=== PATIENT | male | born 1965 | race Caucasian/White ===

== ENCOUNTER 2016-10-03 21:34 | Emergency (ER) | payer OTHER ==
[2016-10-03] MEDS ORDERED: VITAMIN B-1 100 MG, FOLVITE 1 MG, INFUVITE 10 ML in NACL 0.9% 1000 ML 1,000 ML IV ONE (22:07)
--- NOTE | 2016-10-03 22:10 | Emergency Department Report ---
HPI - General Time Seen by Provider: 10/03/16 22:06 - HPI HPI: This is a 50-year-old male presents the emergency department by EMS from a green party with the patient was found unresponsive outside. There was about 60 people at this green party and allegedly most of them new this patient. There was a large amount of alcohol consumption at the green party and suspicion the patient is acutely intoxicated by alcohol. The patient's son is bedside and says that the patient has a history of hypertension and some condition that causes skin thickening and tension in the hands and he takes medication for both. He has a primary care doctor but they cannot remove her his name at this time. The son says that the patient does not have any illicit drug use history. The patient is awake but does appear either intoxicated or confused, and says he is unsure about his alcohol consumption. The patient also presents with some bruising to the chest but he underwent a cultural ritual today called "coining" where coins are rolled up and down the chest and it is known to leave bruising and this is done voluntarily. ED Past Medical Hx - Medications Home Medications: Home Medications Medication Instructions Recorded Confirmed Last Taken Type No Known Home Medications [No 10/03/16 10/03/16 Unknown History Reported Home Medications] ED Review of Systems ROS: Stated complaint: UNRESPONSIVE/POSS ETOH Other details as noted in HPI Comment: Unobtainable due to pts medical conditions Physical Exam - Physical Exam Physical Exam: GENERAL: The patient is well-developed well-nourished. Patient appears intoxicated and smells of alcohol. HEENT: Normocephalic. Atraumatic. Extraocular motions are intact. Patient has moist mucous membranes. Pupils equal reactive to light bilaterally. NECK: Supple. Trachea is midline. CHEST/LUNGS: Clear to auscultation. There is no respiratory distress noted. HEART/CARDIOVASCULAR: Regular. There is no tachycardia. There is no gallop rub or murmur. ABDOMEN: Abdomen is soft, nontender. Patient has normal bowel sounds. There is no abdominal distention. SKIN: Skin is warm and dry. The patient has some lines of ecchymosis on the chest consistent with his admission to "coining." NEURO: The patient is awake, alert, and oriented but does appear intoxicated. The patient is cooperative. The patient has no focal neurologic deficits. The patient has normal speech. MUSCULOSKELETAL: There is no tenderness or deformity. There is no limitation range of motion. There is no evidence of acute injury. ED Medical Decision Making - Lab Data Result diagrams: 10/03/16 22:18 10/03/16 22:18 - EKG Data -: EKG Interpreted by Me EKG shows normal: sinus rhythm, axis, intervals, QRS complexes, ST-T waves Rate: normal - EKG Data When compared to previous EKG there are: previous EKG unavailable Interpretation: normal EKG - Medical Decision Making 50-year-old male presents by EMS from a green party where he was noted to be drinking and was found unresponsive at some point. He is awake and alert once he is in the emergency department but does appear intoxicated and smells of alcohol. Patient's labs are mostly unremarkable except for a blood alcohol level of 0.24 , 3 times the legal limit. Urine drug screen is negative. Patient was given a banana bag and some IV fluid resuscitation. The patient was reevaluated multiple times for multiple hours and has remained stable. If he is sleeping he is easily arousable and remains alert. By this point the patient appears much less intoxicated. His family is bedside and says that they are willing to take responsibility for him, tried him home, and monitor him. The patient does have the mechanism of heavy alcohol use his evening and since he has remained awake and alert despite his intoxication, I did not feel that CT imaging the head was necessary at this time. Vital signs stable throughout his ED course. The patient has been in the emergency department for 4.5 hours. His blood alcohol level would most likely be somewhere around 0.14 to .12. Patient will be discharged home to follow-up with his primary care doctor but has been encouraged to return to the emergency department with any acute distress. Patient was seen ambulatory in the emergency department and appears stable while doing so. - Differential Diagnosis alcohol abuse/intoxication, substance abuse, TIA, hypoglycemia Critical Care Time: No Critical care attestation.: If time is entered above; I have spent that time in minutes in the direct care of this critically ill patient, excluding procedure time. ED Disposition Clinical Impression: Alcohol abuse Alcohol intoxication Qualifiers: Complication of substance-induced condition: uncomplicated Qualified Code(s): F10.120 - Alcohol abuse with intoxication, uncomplicated Disposition: DISCHARGED TO HOME OR SELFCARE Is pt being admited?: No Condition: Stable Instructions: Abuse of Alcohol (ED), Alcohol Intoxication (ED) Additional Instructions: Please follow-up with your primary care doctor in the next few days. Return to the emergency department with any worsening of your symptoms or any acute distress. Referrals: PRIMARY CARE, [Primary Care Provider] - 3-5 Days Time of Disposition: 02:05
[2016-10-03 22:21] LABS: Urine Drugs of Abuse Note Disclamer
[2016-10-03 22:51] LABS: Basophils % (Auto) 0.3 % (0.0-1.8); Eosinophils % (Auto) 1.1 % (0.0-4.3); Hematocrit 41.9 % (35.5-45.6); Hemoglobin 13.7 gm/dl (11.8-15.2); Mean Corpuscular HGB Conc 33 % (32-34); Mean Corpuscular Hemoglobin 31 pg (28-32); Mean Corpuscular Volume 93 fl (84-94); Platelet Count 299 K/mm3 (140-440); Red Blood Count 4.49 M/mm3 (3.65-5.03); White Blood Count 8.7 K/mm3 (4.5-11.0)
[2016-10-03 22:57] LABS: Bilirubin,Urine NEG (Negative); Blood,Urine NEG (Negative); Ketones,Urine NEG (Negative); Leukocyte Esterase,Urine NEG (Negative); Nitrite,Urine NEG (Negative); Protein,Urine <15 mg/dL mg/dL (Negative); Urobilinogen,Urine < 2.0 mg/dL (<2.0); WBC,Urine < 1.0 /HPF (0.0-6.0)
[2016-10-03 23:17] LABS: Alanine Aminotransferase 19 units/L (7-56); Albumin 3.8 g/dL (3.9-5); Albumin/Globulin Ratio 1.2 %; Alkaline Phosphatase 84 units/L (35-129); Anion Gap 22 mmol/L; Bilirubin,Total 0.5 mg/dL (0.1-1.2); Blood Urea Nitrogen 12 mg/dL (9-20); Calcium 8.1 mg/dL (8.4-10.2); Carbon Dioxide 22 mmol/L (22-30); Chloride 99.9 mmol/L (98-107); Glucose 166 mg/dL (75-100); Potassium 3.7 mmol/L (3.6-5.0); Sodium 140 mmol/L (137-145); Total Protein 7.1 g/dL (6.3-8.2)
[2016-10-03 23:22] LABS: Creatine Kinase 107 units/L (55-170)
[2016-10-04 01:55] VITALS: BP 101/65
== END 2016-10-04 03:00 | disposition home or self-care (01) ==
LOC: ED 21:34
DX: F10.120 Alcohol abuse with intoxication, uncomplicated (principal)
CPT/HCPCS: 36415; 80053; 80307; 81001; 82550; 84443; 84484; 85025; 93005; 93010; 96365; 99284; G0480; J3411; J7030; 80320

== ENCOUNTER 2017-01-16 12:55 | Inpatient (IN) | payer OTHER ==
[2017-01-16 14:47] LABS: Basophils % (Auto) 0.2 % (0.0-1.8); Eosinophils % (Auto) 0.3 % (0.0-4.3); Hematocrit 46.9 % (35.5-45.6); Hemoglobin 15.5 gm/dl (11.8-15.2); Mean Corpuscular HGB Conc 33 % (32-34); Mean Corpuscular Hemoglobin 32 pg (28-32); Mean Corpuscular Volume 97 fl (84-94); Platelet Count 344 K/mm3 (140-440); Red Blood Count 4.84 M/mm3 (3.65-5.03); Red Cell Distribution Width 14.8 % (13.2-15.2); White Blood Count 12.4 K/mm3 (4.5-11.0)
[2017-01-16 14:56] LABS: INR 0.96 (0.87-1.13)
[2017-01-16 15:10] LABS: Creatine Kinase MB 1.2 ng/mL (0.0-4.0)
[2017-01-16 15:14] LABS: Anion Gap 23 mmol/L; BUN/Creatinine Ratio 14.44; Blood Urea Nitrogen 13 mg/dL (9-20); Calcium 9.3 mg/dL (8.4-10.2); Carbon Dioxide 23 mmol/L (22-30); Chloride 102.3 mmol/L (98-107); Creatine Kinase 68 units/L (55-170); Glucose 82 mg/dL (75-100); Lipase 16 units/L (13-60); Potassium 5.1 mmol/L (3.6-5.0); Sodium 143 mmol/L (137-145)
--- NOTE | 2017-01-16 15:45 | Emergency Department Report ---
ED Shortness of Breath HPI - General Chief Complaint: Adult Asthma Stated Complaint: MILLY Time Seen by Provider: 01/16/17 13:30 Source: patient, EMS Mode of arrival: Stretcher Limitations: No Limitations - History of Present Illness Initial Comments: 51-year-old male with a past medical history of arthritis presents to the hospital with complaints of shortness of breath, weakness, and chest tightness. Patient was sitting outside on symptom onset. Came into the house and told his family members about his symptoms. He currently feels asymptomatic. Patient had one episode of vomiting so she did nausea. No diaphoresis. Patient denies a previous history of hypertension despite triage. however pt takes 6 medication but does not know the name. - Related Data Home Medications Medication Instructions Recorded Confirmed Last Taken No Known Home Medications [No 10/03/16 10/03/16 Unknown Reported Home Medications] Allergies Allergy/AdvReac Type Severity Reaction Status Date / Time No Known Allergies Allergy Verified 10/03/16 22:38 ED Review of Systems ROS: Stated complaint: MILLY Other details as noted in HPI Comment: All other systems reviewed and negative Other: Constitutional: No fevers chills or weight loss Eyes: No eye pain visual changes or discharge ENT: No ear pain or throat pain Neck: Denies pain Respiratory: Denies cough wheezing Cardiovascular: Denies palpitations, syncope GI: Denies abdominal pain, nausea, vomiting, diarrhea : Denies dysuria Musculoskeletal: Denies back pain Skin: skin robert secondary to coining Neurologic: Denies headache, numbness, weakness Psychiatric: Denies suicidal ideation, hallucinations ED Past Medical Hx - Past Medical History Previous Medical History?: Yes Hx Hypertension: Yes Hx Arthritis: Yes Additional medical history: son states some hardening condition of hands ( unknown) - Surgical History Past Surgical History?: No - Social History Smoking Status: Never Smoker - Medications Home Medications: Home Medications Medication Instructions Recorded Confirmed Last Taken Type No Known Home Medications [No 10/03/16 10/03/16 Unknown History Reported Home Medications] ED Physical Exam - General Limitations: No Limitations - Other Other exam information: General: No limitations, patient is alert in no acute distress Head exam: Atraumatic, normocephalic Eyes exam: Normal appearance, pupils equal reactive to light, extraocular movements intact ENT: Moist mucous membrane, normal oropharynx Neck exam: Normal inspection, full range of motion, no meningismus nontender Respiratory exam: Clear to auscultation bilateral, no wheezes, rales, crackles Cardiovascular: Normal rate and rhythm, normal heart sounds, chest wall nontender Abdomen: Soft, nondistended, and nontender, with normal bowel sounds, no rebound, or guarding Extremity: Full range of motion normal inspection no deformity, no calf tenderness or edema Back: Normal Inspection, full range of motion, no tenderness Neurologic: Alert, oriented x3, cranial nerves intact, no motor or sensory deficit Psychiatric: normal affect, normal mood Skin: Multiple skin robert secondary to coronary ED Course Vital Signs 01/16/17 13:03 Temperature 98.7 F Pulse Rate 103 H Blood Pressure 124/83 O2 Sat by Pulse 100 Oximetry - Reevaluation(s) Reevaluation #1: 01/16/17 16:05 Patient asymptomatic in the ED 01/16/17 16:11 Patient had increased heart rate with standing and a mild drop in blood pressure. It is also possible the patient's generalized weakness, tightness, shortness of breath can be related to orthostatic symptoms. 1 L normal saline ordered ED Medical Decision Making - Lab Data Result diagrams: 01/16/17 14:33 01/16/17 14:33 Lab Results 01/16/17 01/16/17 01/16/17 Range/Units 14:20 14:33 14:33 WBC 12.4 H (4.5-11.0) K/mm3 RBC 4.84 (3.65-5.03) M/mm3 Hgb 15.5 H (11.8-15.2) gm/dl Hct 46.9 H (35.5-45.6) % MCV 97 H (84-94) fl MCH 32 (28-32) pg MCHC 33 (32-34) % RDW 14.8 (13.2-15.2) % Plt Count 344 (140-440) K/mm3 Lymph % (Auto) 9.9 L (13.4-35.0) % [place] % (Auto) 10.2 H (0.0-7.3) % Eos % (Auto) 0.3 (0.0-4.3) % Baso % (Auto) 0.2 (0.0-1.8) % Lymph # 1.2 (1.2-5.4) K/mm3 [place] # 1.3 H (0.0-0.8) K/mm3 Eos # 0.0 (0.0-0.4) K/mm3 Baso # 0.0 (0.0-0.1) K/mm3 Seg Neutrophils % 79.4 H (40.0-70.0) % Seg Neutrophils # 9.8 H (1.8-7.7) K/mm3 PT 12.7 (12.2-14.9) Sec. INR 0.96 (0.87-1.13) Sodium (137-145) mmol/L Potassium (3.6-5.0) mmol/L Chloride (98-107) mmol/L Carbon Dioxide (22-30) mmol/L Anion Gap mmol/L BUN (9-20) mg/dL Creatinine (0.8-1.5) mg/dL Estimated GFR ml/min BUN/Creatinine Ratio % Glucose (75-100) mg/dL Calcium (8.4-10.2) mg/dL Magnesium (1.7-2.3) mg/dL Total Creatine Kinase (55-170) units/L CK-MB (CK-2) (0.0-4.0) ng/mL CK-MB (CK-2) Rel Index (0-4) Troponin T (0.00-0.029) ng/mL NT-Pro-B Natriuret Pep (0-900) pg/mL Lipase (13-60) units/L Plasma/Serum Alcohol 0.07 (0-0.07) gm% 01/16/17 01/16/17 Range/Units 14:33 14:33 WBC (4.5-11.0) K/mm3 RBC (3.65-5.03) M/mm3 Hgb (11.8-15.2) gm/dl Hct (35.5-45.6) % MCV (84-94) fl MCH (28-32) pg MCHC (32-34) % RDW (13.2-15.2) % Plt Count (140-440) K/mm3 Lymph % (Auto) (13.4-35.0) % [place] % (Auto) (0.0-7.3) % Eos % (Auto) (0.0-4.3) % Baso % (Auto) (0.0-1.8) % Lymph # (1.2-5.4) K/mm3 [place] # (0.0-0.8) K/mm3 Eos # (0.0-0.4) K/mm3 Baso # (0.0-0.1) K/mm3 Seg Neutrophils % (40.0-70.0) % Seg Neutrophils # (1.8-7.7) K/mm3 PT (12.2-14.9) Sec. INR (0.87-1.13) Sodium 143 (137-145) mmol/L Potassium 5.1 H (3.6-5.0) mmol/L Chloride 102.3 (98-107) mmol/L Carbon Dioxide 23 (22-30) mmol/L Anion Gap 23 mmol/L BUN 13 (9-20) mg/dL Creatinine 0.9 (0.8-1.5) mg/dL Estimated GFR > 60 ml/min BUN/Creatinine Ratio 14.44 % Glucose 82 (75-100) mg/dL Calcium 9.3 (8.4-10.2) mg/dL Magnesium 2.50 H (1.7-2.3) mg/dL Total Creatine Kinase 68 (55-170) units/L CK-MB (CK-2) 1.2 (0.0-4.0) ng/mL CK-MB (CK-2) Rel Index 1.7 (0-4) Troponin T < 0.010 (0.00-0.029) ng/mL NT-Pro-B Natriuret Pep 26.02 (0-900) pg/mL Lipase 16 (13-60) units/L Plasma/Serum Alcohol (0-0.07) gm% - EKG Data -: EKG Interpreted by Me (sinus 87 no stemi) - EKG Data When compared to previous EKG there are: no significant change - Radiology Data Radiology results: report reviewed (chest x-ray: No acute finding) - Medical Decision Making Patient will be admitted to the hospital for cardiac workup given reports of chest tightness and shortness of breath. It is unclear past medical history and patient is unable to communicate the 6 medications he is taking. Hospitalist informed - Differential Diagnosis MA, unstable angina, MA, costochondritis, atypical chest pain Critical Care Time: No Critical care attestation.: If time is entered above; I have spent that time in minutes in the direct care of this critically ill patient, excluding procedure time. ED Disposition Clinical Impression: Chest pain, SOB (shortness of breath) Disposition: DC-09 OP ADMIT IP TO THIS HOSP Is pt being admited?: Yes Does the pt Need Aspirin: Yes Condition: Stable Time of Disposition: 16:10 (Dr Stanley/hosp)
--- NOTE | 2017-01-16 15:54 | XRay Report ---
FINAL REPORT PROCEDURE: XR CHEST ROUTINE 2V PA and lateral chest x-ray TECHNIQUE: PA and lateral chest radiographs were obtained. CPT 65314 HISTORY: cp, sob COMPARISON: No prior studies are available for comparison. FINDINGS: Heart: Normal. Mediastinum/Vessels: Normal. Lungs/Pleural space: Normal. Bony thorax: No acute osseous abnormality. Other: IMPRESSION: Negative exam.
[2017-01-16] MEDS ORDERED: ASPIRIN PO ONE (16:10)
[2017-01-16] MEDS ORDERED: NACL 0.9% 1000 ML 1,000 ML IV ONE (16:11)
--- NOTE | 2017-01-16 18:00 | History and Physical Report ---
History of Present Illness Date of examination: 01/16/17 Chief complaint: Shortness of breath History of present illness: 51-year-old male with past medical history significant for hypertension , scleroderma presented to the emergency department complaining of shortness of breath and chest tightness that started this morning. Patient said shortness of breath started while he was sitting associated with some dizziness and chest tightness that resolved. Patient denied fever, cough, diaphoresis, palpitation. Patient said he was drinking alcohol last night. REVIEW OF SYSTEMS: GENERAL: no weight change, no fatigue, no fever HEAD: no head ache EYES: no blurry vision, no acute visual loss EARS: no hearing loss, no discharge, no earache NOSE: no stuffiness, no sneezing, no discharge MOUTH, THROAT AND NECK: no bleeding gums, no sore throat, no swollen neck CARDIAC: no palpitations, no dyspnea on exertion, no orthopnea, no PND, no edema , no chest pain, + chest tightness RESPIRATORY: + shortness of breath, no wheeze, no cough, no sputum, no hemoptysis, no asthma GI: no decreased appetite, no nausea, no vomiting, no dysphagia, no diarrhea, no constipation, no abdominal pain URINARY: no change in frequency, no urgency, no polyuria, no hematuria, no incontinence MUSCULOSKELETAL: no muscle weakness, no pain, no joint stiffness NEUROLOGIC: no loss of sensation/numbness, no tingling, no tremors, no weakness/ paralysis HEMATOLOGIC: no anemia, no easy bruising SKIN: no rashes ENDOCRINE: no heat/cold intolerance, no polyuria, no polydipsia, no thyroid problems, no diabetes PSYCHIATRIC: no anxiety, no depression, no suicidal ideations Past History Past Medical History: hypertension, other Past Surgical History: No surgical history (scleroderma) Social history: smoking (2-3 cigarettes a day), alcohol abuse (1-2 BEERS daily) , full code. denies: prescription drug abuse, IV drug use Family history: no significant family history Medications and Allergies Allergies Allergy/AdvReac Type Severity Reaction Status Date / Time No Known Allergies Allergy Verified 10/03/16 22:38 Home Medications Medication Instructions Recorded Confirmed Last Taken Type No Known Home Medications [No 10/03/16 10/03/16 Unknown History Reported Home Medications] Exam - Physical Exam Narrative exam: Not in cardiopulmonary distress. The patient appeared well nourished and normally developed. Vital signs as documented. Head exam is unremarkable. No scleral icterus . Neck is without jugular venous distension, thyromegaly, or carotid bruits. Lungs are clear to auscultation. Cardiac exam reveals regular rate and Rhythm. First and second heart sounds normal. No murmurs, rubs or gallops. Abdominal exam reveals normal bowel sounds, no masses, no organomegaly and no aortic enlargement. Extremities are nonedematous and both femoral and pedal pulses are normal. Skin there are diffuse reddish discoloration on the chest and on the arm. PHOTOGRAPHERS' MODEL: Alert and oriented 3. No focal weakness. - Constitutional Vitals: Temp Pulse Resp BP Pulse Ox 98.7 F 103 H 124/83 100 01/16/17 13:03 01/16/17 13:03 01/16/17 13:03 01/16/17 13:03 Results - Labs CBC & Chem 7: 01/16/17 14:33 01/16/17 14:33 Labs: Laboratory Last Values WBC 12.4 K/mm3 (4.5-11.0) H 01/16/17 14:33 RBC 4.84 M/mm3 (3.65-5.03) 01/16/17 14:33 Hgb 15.5 gm/dl (11.8-15.2) H 01/16/17 14:33 Hct 46.9 % (35.5-45.6) H 01/16/17 14:33 MCV 97 fl (84-94) H 01/16/17 14:33 MCH 32 pg (28-32) 01/16/17 14:33 MCHC 33 % (32-34) 01/16/17 14:33 RDW 14.8 % (13.2-15.2) 01/16/17 14:33 Plt Count 344 K/mm3 (140-440) 01/16/17 14:33 Lymph % (Auto) 9.9 % (13.4-35.0) L 01/16/17 14:33 [place] % (Auto) 10.2 % (0.0-7.3) H 01/16/17 14:33 Eos % (Auto) 0.3 % (0.0-4.3) 01/16/17 14:33 Baso % (Auto) 0.2 % (0.0-1.8) 01/16/17 14:33 Lymph # 1.2 K/mm3 (1.2-5.4) 01/16/17 14:33 [place] # 1.3 K/mm3 (0.0-0.8) H 01/16/17 14:33 Eos # 0.0 K/mm3 (0.0-0.4) 01/16/17 14:33 Baso # 0.0 K/mm3 (0.0-0.1) 01/16/17 14:33 Seg Neutrophils % 79.4 % (40.0-70.0) H 01/16/17 14:33 Seg Neutrophils # 9.8 K/mm3 (1.8-7.7) H 01/16/17 14:33 PT 12.7 Sec. (12.2-14.9) 01/16/17 14:33 INR 0.96 (0.87-1.13) 01/16/17 14:33 Sodium 143 mmol/L (137-145) 01/16/17 14:33 Potassium 5.1 mmol/L (3.6-5.0) H 01/16/17 14:33 Chloride 102.3 mmol/L (98-107) 01/16/17 14:33 Carbon Dioxide 23 mmol/L (22-30) 01/16/17 14:33 Anion Gap 23 mmol/L 01/16/17 14:33 BUN 13 mg/dL (9-20) 01/16/17 14:33 Creatinine 0.9 mg/dL (0.8-1.5) 01/16/17 14:33 Estimated GFR > 60 ml/min 01/16/17 14:33 BUN/Creatinine Ratio 14.44 % 01/16/17 14:33 Glucose 82 mg/dL (75-100) 01/16/17 14:33 Calcium 9.3 mg/dL (8.4-10.2) 01/16/17 14:33 Magnesium 2.50 mg/dL (1.7-2.3) H 01/16/17 14:33 Total Creatine Kinase 68 units/L (55-170) 01/16/17 14:33 CK-MB (CK-2) 1.2 ng/mL (0.0-4.0) 01/16/17 14:33 CK-MB (CK-2) Rel Index 1.7 (0-4) 01/16/17 14:33 Troponin T < 0.010 ng/mL (0.00-0.029) 01/16/17 14:33 NT-Pro-B Natriuret Pep 26.02 pg/mL (0-900) 01/16/17 14:33 Lipase 16 units/L (13-60) 01/16/17 14:33 Plasma/Serum Alcohol 0.07 gm% (0-0.07) 01/16/17 14:20 Assessment and Plan Assessment and plan: Shortness of breath Chest tightness Scleroderma Hypertension Active tobacco use leukocytosis - First troponin is negative EKG normal sinus rhythm, we'll do 2 more sets of cardiac enzymes - Chest x-rays normal - We'll stress test tomorrow - Counseled about cessation of tobacco - leukocytosis is due to prednisone - We will resume appropriate home medications DVT prophylaxis - Lovenox Disposition - Admit to telemetry floor Advance Directives: Yes VTE prophylaxis?: Chemical Plan of care discussed with patient/family: Yes
[2017-01-16] MEDS ORDERED: SODIUM CHLORIDE FLUSH SYRINGE 10 ML IV PRN (18:02)
[2017-01-16 18:48] LABS: Basophils % (Auto) 0.4 % (0.0-1.8); Eosinophils % (Auto) 0.6 % (0.0-4.3); Hematocrit 39.8 % (35.5-45.6); Hemoglobin 13.6 gm/dl (11.8-15.2); Mean Corpuscular HGB Conc 34 % (32-34); Mean Corpuscular Hemoglobin 32 pg (28-32); Mean Corpuscular Volume 95 fl (84-94); Platelet Count 290 K/mm3 (140-440); Red Blood Count 4.21 M/mm3 (3.65-5.03); Red Cell Distribution Width 14.7 % (13.2-15.2); White Blood Count 7.6 K/mm3 (4.5-11.0)
[2017-01-16] MEDS ORDERED: LOVENOX SUB-Q SCH (19:00)
[2017-01-16 19:03] LABS: Anion Gap 20 mmol/L; BUN/Creatinine Ratio 13.75; Blood Urea Nitrogen 11 mg/dL (9-20); Calcium 8.2 mg/dL (8.4-10.2); Carbon Dioxide 22 mmol/L (22-30); Chloride 105.4 mmol/L (98-107); Cholesterol 153 mg/dL (50-199); Glucose 84 mg/dL (75-100); HDL Cholesterol 38 mg/dL (40-59); LDL Cholesterol,Direct 68 mg/dL (50-130); Potassium 4.4 mmol/L (3.6-5.0); Sodium 143 mmol/L (137-145); Triglycerides 239 mg/dL (2-149)
[2017-01-16 19:16] LABS: INR 0.94 (0.87-1.13)
[2017-01-17 05:36] LABS: Basophils % (Auto) 0.3 % (0.0-1.8); Eosinophils % (Auto) 2.2 % (0.0-4.3); Hematocrit 40.5 % (35.5-45.6); Hemoglobin 13.4 gm/dl (11.8-15.2); Mean Corpuscular HGB Conc 33 % (32-34); Mean Corpuscular Hemoglobin 32 pg (28-32); Mean Corpuscular Volume 96 fl (84-94); Platelet Count 286 K/mm3 (140-440); Red Cell Distribution Width 14.5 % (13.2-15.2); White Blood Count 5.6 K/mm3 (4.5-11.0)
[2017-01-17 05:58] LABS: Anion Gap 19 mmol/L; Blood Urea Nitrogen 14 mg/dL (9-20); Calcium 8.6 mg/dL (8.4-10.2); Carbon Dioxide 23 mmol/L (22-30); Chloride 102.2 mmol/L (98-107); Glucose 89 mg/dL (75-100); Potassium 3.6 mmol/L (3.6-5.0); Sodium 141 mmol/L (137-145)
[2017-01-17] MEDS ORDERED: PROCARDIA XL PO SCH (10:00)
[2017-01-17] MEDS ORDERED: predniSONE PO SCH (10:00)
[2017-01-17] MEDS ORDERED: PROTONIX PO SCH (10:00)
[2017-01-17] MEDS ORDERED: BABY ASPIRIN PO SCH (10:00)
[2017-01-17] MEDS ORDERED: FOLVITE PO SCH (10:00)
[2017-01-17] MEDS ORDERED: LEXISCAN IV ONE ×2 (10:18→10:21)
--- NOTE | 2017-01-17 10:48 | Admit Criteria Form ---
Admission Criteria Documentation: CARDIOLOGY GRG Clinical Indications for Admission to Inpatient Care ( Place 'X' for any and all applicable criteria): Hospital admission is needed for appropriate care of the patient because of ANY ONE of the following (1): [ ] I. Hemodynamic instability as indicated by ALL of the following (1)(2)(3) (4)(5) [ ]a) Vital signs or other findings not as expected for chronic patient condition or baseline [ ]b) Instability indicated by ANY ONE of the following: [ ]i) Hypotension [ ]ii) Symptomatic Tachycardia unresponsive to treatment ( e.g., analgesia, fluids, sedation as indicated) [ ]iii) Inadequate perfusion indicated by ANY ONE of the following: [ ] 1) Lactic acidosis (> 2 mmol/L) [ ] 2) New abnormal capillary refill (> 3 seconds) [ ] 3) Reduced urine output [ ] 4) New altered mental status [ ]iv) Orthostatic vital sign changes unresponsive to treatment (e.g., fluids) [ ]v) IV inotropic or vasopressor medication required to maintain adequate blood pressure or perfusion [ ] II. Severe heart failure as indicated by ANY ONE of the following(17)(18) [ ]a) Respiratory distress [ ]b) Hypotension [ ]c) Anasarca (refractory to outpatient therapy) [ ]d) Cardiac arrhythmias of immediate concern [ ]e) Myocardial ischemia [ ] III. Cardiac arrhythmias or findings of immediate concern indicated by ANY ONE of the following (19)(20): [ ] a) Heart rhythms that are inherently dangerous or unstable indicated by ANY ONE of the following (21)(22)(23): [ ] i) Resuscitated ventricular fibrillation or cardiac arrest [ ] ii) Ventricular escape rhythm [ ] iii) Sustained ventricular tachycardia (30 seconds or more of ventricular rhythm at greater than 100 beats per minute) [ ] iv) Nonsustained ventricular tachycardia and ANY ONE of the following: [ ] 1) Suspected cardiac ischemia as cause or consequence of ventricular tachycardia [ ] 2) In setting of acute myocarditis [ ] b) Unstable cardiac conduction defects indicated by ANY ONE of the following(23)(24)(25) [ ] i) Type II second-degree atrioventricular block [ ]ii) Third-degree atrioventricular block [ ]iii) New-onset left bundle branch block with suspected myocardial ischemia [ ]c) Any heart rhythm and ANY ONE of the following (21)(22)(26)(27) (28) [ ] i) Continuous long-term ECG monitoring needed (e.g., initiation of drug requiring monitoring for more than 24 hours) [ ] ii) Patient has automatic implanted cardioverter defibrillator that is repeatedly firing, malfunctioning, or in need of immediate adjustment of settings beyond the scope of ambulatory or observation care [ ]d) Heart rhythms of concern due to ANY ONE of the following: [ ] i) Hypotension [ ] ii) Respiratory distress [ ] iii) Association with other significant symptoms (e.g., bradycardia with syncope or ongoing dizziness, supraventricular tachycardia with chest pain (14)(15)(17) [ ] IV. Monitoring for cardiac contusion beyond the scope of observation care needed [A](30)(31)(32) [ ] V. Surgical or device complication (e.g., valve replacement complication , pacemaker dysfunction) (35)(41)(44)(45)(46) [ ] . Inpatient palliative care needed. [B](49) Also use Inpatient Palliative Care Criteria [ ] VII. Nonbacterial thrombotic (marantic) endocarditis (36)(43)(47)(48) [X] VIII. Cardiology condition, symptom, or finding for which emergency and observation care has failed or are not considered appropriate. [ ] IX. Acute valvular disease requiring inpatient as indicated by ANY ONE of the following (41) [ ]a) Acute valvular regurgitation (42) [ ]b) Noninfectious valvulitis (43) [ ]c) Obstructive valve thrombosis [ ]d) Paravalvular leak [ ]e) Other significant valvular disorder remaining after emergency or observation level of care (as appropriate) [ ]X. Pericardial disease requiring inpatient treatment as indicated by ANY ONE of the following (33)(34)(35)(36)(37) [ ]a) Suspected tamponade (38)(39)(40) [ ]b) Hemopericardium [ ]c) Other significant pericardial disorder remaining after emergency or observation level of care (as appropriate) [ ] XI. Cardiac ischemia beyond scope of emergency and observation care. [ ] XII. Hypertension requiring inpatient treatment as indicated by ANY ONE of the following (6)(7)(8) [ ]a) SBP greater than 220 mm Hg or DBP greater than 120 mmHg despite treatment [ ]b) SBP greater than 140 mm Hg or DBP greater than 100 mm Hg with evidence of acute end organ damage as indicated by ANY ONE of the following [ ] i) Altered mental status [ ] ii) Acute renal failure as indicated by new onset of ANY ONE of the following (9)(10)(11)(12)(13) [ ]1) 3-fold rise in serum creatinine from baseline [ ]2) Serum creatinine greater than 4 mg/dL ( 354 micromoles/L) with acute rise greater than 0.5 mg/dL (44.2 micromoles/L) [ ]3) Reduction of more than 75% in estimated glomerular filtration rate from baseline [ ]4) Estimated glomerular filtration rate less than 35 mL/min/1.73m2 (0.59 mL/sec/1.73m2) in child up to 18 years of age [ ]5) Cessation of urine output indicated by ALL of the following [ ]A. Adequate volume status [ ]B. Inadequate urine output as indicated by ANY ONE of the following [ ]a. Urine output less than 0.3 mL/kg/hr for 24 hours [ ]b. Anuria (urine output less than 0.1 mL/kg/hr) for 12 hours [ ] iii) Aortic dissection [ ] iv) Myocardial Ischemia [ ] v) Left ventricular heart failure [ ]vi) Retinal Hemorrhage [ ]vii) Other significant finding [ ]c) Hypertension in child requiring inpatient treatment as indicated by ALL of the following(14)(15)(16) [ ] i) Outpatient treatment not effective, not available, or not appropriate [ ]ii) SBP or DBP greater than 95th percentile for age [ ]iii) Evidence of acute end organ damage as indicated by ANY ONE of the following [ ]1) Altered mental status [ ]2) Acute renal failure as indicated by new onset of ANY ONE of the following(9)(10)(11)(12)(13) [ ]A. 3-fold rise in serum creatinine from baseline [ ]B. Serum creatinine greater than 4 mg/dL (354 micromoles/L) with acute rise greater than 0.5 mg/dL (44.2 micromoles/L) [ ]C. Reduction of more than 75% in estimated glomerular filtration rate from baseline [ ]D. Estimated glomerular filtration rate less than 35 mL/min/1.73m2 (0.59 mL/sec/1.73m2) in child up to 18 years of age [ ]E. Cessation of urine output indicated by ALL of the following [ ]a. Adequate volume status [ ]b. Inadequate urine output as indicated by ANY ONE of the following [ ]i) Urine output less than 0.3 mL/kg/hr for 24 hours [ ]ii) Anuria ( urine output less than 0.1 mL/kg/hr) for 12 hours [ ]3) Severe headache [ ]4) Visual disturbance [ ]5) Retinal hemorrhage [ ]6) Other significant finding [ ]XIII. Complications of transplanted heart indicated by ANY ONE of the following(61): [ ]a) Acute graft rejection requiring inpatient management (eg, intravenous immunosuppression)(62)(63) [ ]b) Acute graft heart failure indicated by ANY ONE of the following(64): [ ]i) Hemodynamic instability [ ]ii) Cardiac arrhythmias of immediate concern [ ]iii) Pulmonary edema that is very severe (eg, mechanical ventilation needed, imminent or likely, need for 100% oxygen to keep oxygen saturation above 90%) [ ]iv) Pulmonary edema that is persistent as indicated by ALL of the following: [ ]1) New need for oxygen therapy to keep oxygen saturation above 90% (or increased FiO2 need from baseline) [ ]2) Has not improved sufficiently with emergency department or observation care IV diuretics or other heart failure treatments[E] [ ]v) Altered mental status that is severe or persistent [ ]vi) Increased creatinine (new on laboratory test) with reduction of more than 50% in estimated glomerular filtration rate from baseline [ ]vii) Progressively (ongoing) rising creatinine (known from past laboratory test) with reduction of more than 25% in estimated glomerular filtration rate from baseline [ ]viii) Acute renal failure [ ]ix) Acute peripheral ischemia (eg, examination shows pulseless, cool, mottled, or cyanotic extremity) [ ]x) Pulmonary artery catheter monitoring needed [ ]xi) Other sign or symptom of heart failure requiring inpatient treatment (ie, too severe or not responsive to outpatient and observation care treatment) [ ]c) Infection requiring inpatient management (eg, Hemodynamic instability, need for intravenous antimicrobial treatment)(66)(67)(68)(69)(70) [ ]d) Cardiac allograft vasculopathy requiring inpatient management ( eg evidence of cardiac ischemia)(71) [ ]e) Other complication of transplanted heart (eg, stroke, severe pulmonary hypertension, severe valvular dysfunction) requiring inpatient management(72) The original [facility] [employer] content created by [facility] has been revised. The portions of the content which have been revised are identified through the use of italic text or in bold, and [facility] has neither reviewed nor approved the modified material. All other unmodified content is copyright [facility] [employer]. Please see references footnoted in the original [facility] [employer] edition 2016 Admission Criteria Met: Yes
--- NOTE | 2017-01-17 12:34 | Discharge Summary ---
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 Patient said shortness of breath started while he was sitting associated with some dizziness and chest tightness that resolved. Patient denied fever, cough, diaphoresis, palpitation. Patient said he was drinking alcohol last night. The patient was re-stratified with a stress test which was negative his respiratory status didn' t improve. We did recommend continue on his medications as he is on prednisone and this was continued here. 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 He did not do straight any fever at this time. He is clinically stable for discharge Discharge diagnosis Acute on chronic respiratory failure Typical chest pain likely secondary to costochondritis Scleroderma Hypertension Active tobacco use Active leukocytosis Disposition: - TO HOME OR SELFCARE Time spent for discharge: 31 Core Measure Documentation - Palliative Care Palliative Care/ Comfort Measures: Not Applicable - Core Measures Any of the following diagnoses?: none - VTE Discharge Requirements Deep Vein Thrombosis/Pulmonary Embolism Present on Admission: No Exam - Physical Exam Narrative exam: VITAL SIGNS: Reviewed. GENERAL: The patient appeared well nourished and normally developed. Vital signs as documented. HEAD: No signs of head trauma. EYES: Pupils are equal. Extraocular motions intact. EARS: Hearing grossly intact. MOUTH: Oropharynx is normal. NECK: No adenopathy, no JVD. CHEST: Chest with clear breath sounds bilaterally. No wheezes, rales, or rhonchi. CARDIAC: Regular rate and rhythm. S1 and S2, without murmurs, gallops, or rubs. VASCULAR: No Edema. Peripheral pulses normal and equal in all extremities. ABDOMEN: Soft, without detectable tenderness. No sign of distention. No rebound or guarding, and no masses palpated. Bowel Sounds normal. MUSCULOSKELETAL: Good range of motion of all major joints. Extremities without clubbing, cyanosis or edema. NEUROLOGIC EXAM: Alert and oriented x 3. No focal sensory or strength deficits. Speech normal. Follows commands. PSYCHIATRIC: Mood normal. SKIN: No rash or lesions. - Constitutional Vitals: Temp Pulse Resp BP Pulse Ox 98.2 F 58 L 18 120/63 98 01/17/17 08:00 01/17/17 08:02 01/17/17 08:00 01/17/17 08:00 01/17/17 08:00 Plan Activity: advance as tolerated, fall precautions Diet: low fat Special Instructions: record daily weights, record daily BP diary Follow up with: PRIMARY CARE, [Primary Care Provider] - 3-5 Days Forms: Discharge Signature Page
--- NOTE | 2017-01-17 13:35 | Query- Chest Pain ---
Steven Danielle Anastasiya Date: 01/17/17 Demarcus/CDS: Fabian Suarez Phone#:[phone] Exercise your independent professional judgment when responding to query. Questions asked do not imply a particular answer is desired or expected. We greatly appreciate your clarification on this issue. Clinical Documentation States: The H&P states " 51-year-old male with past medical history significant for hypertension, scleroderma presented to the emergency department complaining of shortness of breath and chest tightness that started this morning Assessment and plan: Shortness of breath Chest tightness " Please document the etiology of Chest Pain: [ ] Myocardial Infarction [ ] Pneumonia [ ] Mediastinitis [X ] Costochondritis [ ] Pulmonary Embolism [ ] Coronary Artery Disease [ ] GERD [ ] Other: [ ] Comment/Explanation: Present on Admission: [Y ] Yes (Y) [ ] Clinically undeterminable (W) [ ] No(N) Please document response in your Progress Notes and/or Discharge Summary and indicate if the condition was present on admission. SALVATORE
--- NOTE | 2017-01-18 07:18 | Treadmill Report ---
NUCLEAR CARDIOLOGY PERFUSION STUDY READING PHYSICIAN: Luke Manuel M.D. The patient presented to my office. IMAGING PROTOCOL: The patient received 10 mCi of Technetium 99m Tetrofosmin for resting image and 28 mCi of Technetium 99m Tetrofosmin for stress imaging. The imaging for the whole procedure was completed 30-90 minutes following the initial injection of Technetium 99m tetrofosmin. The SPECT imaging in the 180 degree arc was performed in the right anterior oblique projection. Computerized reconstruction of the images was performed for analysis. IMAGING RESULTS: Normal cavity size from stress to rest. Normal distribution of radionuclide in the anterior, inferior, septal and apical regions. Gated SPECT greater than 65%. The patient infused Lexiscan with no EKG changes. SUMMARY: 1. Negative Lexiscan EKG. 2. Normal rest and stress myocardial perfusion scan. No significant stress ischemia. No wall motion abnormality. Gated SPECT greater than 65%. JOB# [id number] KATY/ALEXANDRU
[2017-01-18 13:14] VITALS: BP 127/84
[2017-01-23] MEDS ORDERED: METHOTREXATE SODIUM PO SCH (10:00)
== END 2017-01-17 14:58 | disposition home or self-care (01) | DRG 205 ==
LOC: ED 12:55 → 4A 17:38
PROVIDERS: ADMIT Internal Medicine; ATTEND Internal Medicine
DX: M94.0 Chondrocostal junction syndrome [Tietze] (principal); J96.20 Acute and chronic respiratory failure, unspecified whether with hypoxia or hypercapnia; M34.9 Systemic sclerosis, unspecified; I10 Essential (primary) hypertension; M19.90 Unspecified osteoarthritis, unspecified site; D72.829 Elevated white blood cell count, unspecified; F17.200 Nicotine dependence, unspecified, uncomplicated; Z71.6 Tobacco abuse counseling
CPT/HCPCS: 36415; 71020; 78452; 80048; 80061; 80320; 82550; 82553; 83690; 83735; 83880; 84484; 85025; 85610; 93005; 93010; 93017; 93880; 96360; 96372; 99406; A9270-GY; A9502; G0480; J1650; J2785; J7030; J7512